=== PATIENT | male | born 1975 | race Caucasian/White ===

== ENCOUNTER 2018-02-28 16:01 | Emergency (ER) | payer SELFPAY ==
[2018-02-28 17:08] LABS: Absolute Lymphocytes (CBC) 1.9 K/uL (0.7-4.9); Absolute Monocytes 0.4 K/uL (0.1-1.3); Absolute Neutrophil 7.4 K/uL (1.8-8.0); Basophils % 0.4 % (0-1.3); MCH 32.7 pg (27.0-35.0); MCV 94.7 fL (80-100); Monocytes % 4.5 % (3.3-12.3); RBC Red Blood Cell Count 4.86 M/uL (4.33-5.43)
[2018-02-28 17:09] LABS: Barbiturates NEGATIVE (NEGATIVE); Benzodiazepines NEGATIVE (NEGATIVE); Cocaine NEGATIVE (NEGATIVE); METHAMPHETAM NEGATIVE (NEGATIVE); Opiates NEGATIVE (NEGATIVE); Phencyclidine NEGATIVE (NEGATIVE); THC Cannibis NEGATIVE (NEGATIVE)
[2018-02-28 17:13] LABS: Protime INR 0.88
[2018-02-28 17:16] LABS: Bicarbonate 25 mEq/L (21-31); Glucose Level 120 mg/dL (65-120); Potassium 3.4 mEq/L (3.6-5.0); Sodium Level 140 mEq/L (135-145)
[2018-02-28 17:23] LABS: ALT/SGPT 92 IU/L (10-60); AST/SGOT 128 IU/L (10-42); Albumin 4.8 g/dL (3.2-5.5); Alcohol Serum/Plasma 334 mg/dl; Alkaline Phosphatase 76 IU/L (42-121); BUN Blood Urea Nitrogen < 5 mg/dL (6-20); Bilirubin Direct 0.1 mg/dL (0-0.2); Bilirubin Total 0.4 mg/dL (0.3-1.2); Protein, Total 8.2 g/dL (6.0-8.3)
--- NOTE | 2018-02-28 18:15 | RAD REPORT ---
EXAM DESCRIPTION: Tracey Love (2 Views)02/28/2018 6:02 pm CLINICAL HISTORY: Chest pain COMPARISON: April 2017 FINDINGS: The lungs appear clear of acute infiltrate. The heart is normal size IMPRESSION: No acute abnormalities displayed
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
[2018-02-28 19:33] LABS: Urine Blood TRACE (NEG); Urine Glucose NEGATIVE (NEG); Urine Protein NEGATIVE (NEG); Urine pH 6.5 (5.0-7.0)
--- NOTE | 2018-03-01 06:30 | EKG ---
Test Date: 2018-02-28 Test Time: 16:18:27 Ceo And President: LAST MEASUREMENT RESULTS: Intervals: Rate: 107 AK: 120 QRSD: 84 QT: 334 QTc: 445 [place]: P: 69 AK: 120 QRS: 66 T: 57 INTERPRETIVE STATEMENTS: Sinus tachycardia Otherwise normal ECG Compared to ECG 04/29/2017 03:45:41 Sinus rhythm no longer present Sinus arrhythmia no longer present Early repolarization no longer present Electronically Signed On 03-01-18 06:28:58 CDT by Tiburcio Louis
== END 2018-02-28 18:36 | disposition home or self-care (01) ==
LOC: ER 16:01
DX: F10.129 Alcohol abuse with intoxication, unspecified (principal); I10 Essential (primary) hypertension; F17.210 Nicotine dependence, cigarettes, uncomplicated
CPT/HCPCS: 36415; 71046; 80048; 80076; 80307; 80320; 81003; 84484; 85025; 85610; 93005; 99285

== ENCOUNTER 2018-05-07 12:49 | Emergency (ER) | payer SELFPAY ==
[2018-05-07] MEDS ORDERED: DIPHENHYDRAMINE 50 MG/ML VIAL ONE (14:47)
[2018-05-07] MEDS ORDERED: METOCLOPRAMIDE 10 MG/2mL INJ ONE (14:47)
[2018-05-07] MEDS ORDERED: NA CHLORIDE 0.9% 1,000 ML ONE (14:48)
[2018-05-07] MEDS ORDERED: KETOROLAC 30 MG/ML INJ ONE (14:48)
--- NOTE | 2018-05-07 15:02 | RAD REPORT ---
EXAM DESCRIPTION: CT - Head Brain Wo Cont - 05/07/2018 2:55 pm CLINICAL HISTORY: Left-sided headache COMPARISON: None. TECHNIQUE: Axial 5 mm thick images of the head were obtained without IV contrast. All CT scans are performed using dose optimization technique as appropriate and may include automated exposure control or mA/KV adjustment according to patient size. FINDINGS: No intracranial hemorrhage, mass, edema or shift of mid-line structures. No acute infarcti on changes seen. No abnormal extra-axial fluid collections. Ventricles are normal. Mastoid air cells and visualized portions of the paranasal sinuses are clear. No acute bony findings. IMPRESSION: Negative non-contrast CT head examination.
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
== END 2018-05-07 16:30 | disposition home or self-care (01) ==
LOC: ER 12:49
DX: R51 Headache (principal); I10 Essential (primary) hypertension; F17.210 Nicotine dependence, cigarettes, uncomplicated
CPT/HCPCS: 70450; 96361; 96374; 96375; 99284; J2765; J7030

== ENCOUNTER 2019-02-15 20:05 | Emergency (ER) | payer SELFPAY ==
[2019-02-15] MEDS ORDERED: HYDROCODONE/APAP 10/325 TAB ONE (21:12)
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
--- NOTE | 2019-02-16 08:15 | RAD REPORT ---
EXAM DESCRIPTION: RAD - Lumbar Spine 3 Views - 02/15/2019 9:10 pm CLINICAL HISTORY: PAIN Radiculopathy COMPARISON: No comparisons FINDINGS: Vertebral body heights appear maintained. No compression fracture noted. Disc spaces are m aintained. Mild degenerative levoscoliosis seen. Facet arthrosis is noted, mild, L4-5 and L5-S1. IMPRESSION: Mild spondylosis without acute process identified.
== END 2019-02-15 21:51 | disposition home or self-care (01) ==
LOC: ER 20:05
DX: M54.5 Low back pain (principal); F17.210 Nicotine dependence, cigarettes, uncomplicated
CPT/HCPCS: 72100; 99284

== ENCOUNTER 2020-11-02 19:35 | Emergency (ER) | payer OTHER, SELFPAY ==
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
[2020-11-02] MEDS ORDERED: KETOROLAC 30 MG/ML INJ ONE (20:10)
[2020-11-02 20:36] VITALS: BP 143/109; TEMP 98.4; O2SAT 98
== END 2020-11-02 20:17 | disposition home or self-care (01) ==
LOC: ER 19:35
DX: G89.21 Chronic pain due to trauma (principal); V89.2XXA Person injured in unspecified motor-vehicle accident, traffic, initial encounter; I10 Essential (primary) hypertension; F17.210 Nicotine dependence, cigarettes, uncomplicated
CPT/HCPCS: 96372; 99283

== ENCOUNTER 2020-11-05 16:25 | Emergency (ER) | payer SELFPAY ==
[2020-11-05 19:44] LABS: Urine Blood TRACE (NEG); Urine Glucose NEGATIVE (NEG); Urine Protein NEGATIVE (NEG)
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
[2020-11-05 20:50] LABS: Barbiturates NEGATIVE (NEGATIVE); Benzodiazepines NEGATIVE (NEGATIVE); Cocaine NEGATIVE (NEGATIVE); METHAMPHETAM NEGATIVE (NEGATIVE); Methadone NEGATIVE (NEGATIVE); Opiates NEGATIVE (NEGATIVE); Phencyclidine NEGATIVE (NEGATIVE); THC Cannibis NEGATIVE (NEGATIVE)
[2020-11-05 22:32] LABS: Absolute Lymphocytes (CBC) 1.4 K/uL (0.7-4.9); Basophils % 0.4 % (0-1.3); Hematocrit 47.5 % (39.6-49.0); Lymphocytes % 18.2 % (15.3-44.8); MPV 7.5 fL (7.6-11.3); RBC Red Blood Cell Count 5.17 M/uL (4.33-5.43)
[2020-11-05 22:36] LABS: Protime INR 0.82
[2020-11-05 22:49] LABS: ALT/SGPT 53 U/L (12-78); AST/SGOT 84 U/L (15-37); Albumin 4.4 g/dL (3.4-5.0); Alkaline Phosphatase 94 U/L (45-117); BUN Blood Urea Nitrogen 4 mg/dL (7-18); Bicarbonate 23 mmol/L (21-32); Bilirubin Direct 0.2 mg/dL (0-0.2); Bilirubin Total 0.5 mg/dL (0.2-1.0); Glucose Level 82 mg/dL (74-106); Potassium 3.6 mmol/L (3.5-5.1); Protein, Total 8.5 g/dL (6.4-8.2); Sodium Level 138 mmol/L (136-145)
[2020-11-05] MEDS ORDERED: TETRACAINE HCL 0.5% 4ML OPTH ONE (23:01)
[2020-11-05] MEDS ORDERED: FLUORESCEIN SODIUM 1 MG/WRAP ONE (23:01)
--- NOTE | 2020-11-06 10:00 | EKG ---
Test Date: 2020-11-05 Test Time: 18:47:19 Twisting Press Operator: AMPARO MEASUREMENT RESULTS: Intervals: Rate: 109 MA: 120 QRSD: 82 QT: 340 QTc: 457 [place]: P: 77 MA: 120 QRS: 72 T: 65 INTERPRETIVE STATEMENTS: Sinus tachycardia Otherwise normal ECG Compared to ECG 02/28/2018 16:18:27 No significant changes Electronically Signed On 11-06-20 09:59:27 DIAMOND DIE POLISHER by Hayden Ramos
[2020-11-06 11:04] VITALS: BP 131/94; TEMP 97.8; O2SAT 95
== END 2020-11-06 10:56 | disposition home or self-care (01) ==
LOC: ER 16:25
DX: F10.129 Alcohol abuse with intoxication, unspecified (principal); F31.9 Bipolar disorder, unspecified; F17.210 Nicotine dependence, cigarettes, uncomplicated; I10 Essential (primary) hypertension; Y90.6 Blood alcohol level of 120-199 mg/100 ml
CPT/HCPCS: 36415; 80048; 80076; 80307; 80320; 80329; 81003; 85025; 85610; 85730; 93005; 99284

== ENCOUNTER → 2020-11-05 | Emergency (ER) | payer SELFPAY | LOC: ER 20:43 | DX: Z02.9 Encounter for administrative examinations, unspecified (principal) ==

== ENCOUNTER 2021-01-09 13:17 | Emergency (ER) | payer OTHER, SELFPAY ==
--- OUTSIDE RECORDS SUMMARY | 2021-01-09 13:35 | XMS REPORT | Continuity of Care Document ---
:1975 Author Organization [facility] Address [address] [place] [address] Dr. Winn [address] [place] [id number] Care Team Providers Name Role Phone Unavailable Unavailable Unavailable Problems This patient has no known problems. Allergies, Adverse Reactions, Alerts This patient has no known allergies or adverse reactions. Medications This patient has no known medications. Procedures This patient has no known procedures. Encounters Start End Encounter Admission Attending Care Care Encounter Source Date/Time Date/Time Type Type Clinicians Facility Department ID 2019-09-05 2019-09-05 Outpatient [facility] [id number] [facility] 18:00:00 18:00:00 2019-09-05 2019-09-05 Inpatient [facility] [id number] [facility] 21:35:00 15:51:00 Results This patient has no known results.
[2021-01-09 13:36] LABS: Urine Blood Negative (Negative); Urine Glucose Negative (Negative); Urine Protein Negative (Negative); Urine pH 6.5 (5.0-7.0)
[2021-01-09 13:43] LABS: Absolute Lymphocytes (CBC) 2.5 K/uL (0.7-4.9); Basophils % 1.4 % (0-1.3); Lymphocytes % 31.8 % (15.3-44.8); MPV 7.5 fL (7.6-11.3); RBC Red Blood Cell Count 4.72 M/uL (4.33-5.43)
[2021-01-09 13:46] LABS: Protime INR 0.82
--- NOTE | 2021-01-09 13:56 | RAD REPORT ---
EXAM DESCRIPTION: CT - Head Brain Wo Cont - 01/09/2021 1:35 pm CLINICAL HISTORY: MENTAL STATUS CHANGE COMPARISON: Head Brain Wo Cont dated 05/07/2018 TECHNIQUE: Axial 5 mm thick images of the head were obtained without IV contrast. All CT scans are performed using dose optimization technique as appropriate and may include automated exposure control or mA/KV adjustment according to patient size. FINDINGS: No intracranial hemorrhage, mass, edema or shift of mid-line structures. No acute infarcti on changes seen. No abnormal extra-axial fluid collections. Ventricles are normal. Mastoid air cells are clear. Left deviation of the nasal septum present. Patchy mucosal thickening se en in the left frontal and bilateral ethmoid air cells. No acute bony findings. IMPRESSION: Negative non-contrast CT head examination for acute finding. Above detailed findings are not significantly different from 2018.
[2021-01-09 14:08] LABS: ALT/SGPT 221 U/L (12-78); AST/SGOT 105 U/L (15-37); Albumin 4.4 g/dL (3.4-5.0); Alkaline Phosphatase 108 U/L (45-117); BUN Blood Urea Nitrogen 3 mg/dL (7-18); Bicarbonate 25 mmol/L (21-32); Bilirubin Direct 0.1 mg/dL (0-0.2); Bilirubin Total 0.3 mg/dL (0.2-1.0); Glucose Level 90 mg/dL (74-106); Protein, Total 8.1 g/dL (6.4-8.2); Sodium Level 136 mmol/L (136-145)
[2021-01-09 14:08] LABS: Barbiturates NEGATIVE (NEGATIVE); Benzodiazepines NEGATIVE (NEGATIVE); Cocaine NEGATIVE (NEGATIVE); METHAMPHETAM NEGATIVE (NEGATIVE); Opiates NEGATIVE (NEGATIVE); Phencyclidine NEGATIVE (NEGATIVE)
[2021-01-09] MEDS ORDERED: NA CHLORIDE 0.9% 1,000 ML ONE (14:30)
[2021-01-09 14:45] LABS: Methadone NEGATIVE (NEGATIVE); THC Cannibis NEGATIVE (NEGATIVE)
[2021-01-09] MEDS ORDERED: FOLIC ACID 1 MG, MULTIVITAMINS INJ 10 ML, THIAMINE HCL 100 MG in NA CHLORIDE 0.9% 1,000 ML IV ONE (15:00)
--- NOTE | 2021-01-09 16:07 | EKG ---
Test Date: 2021-01-09 Test Time: 13:25:25 Leave Coordinator: Zara Yeager MEASUREMENT RESULTS: Intervals: Rate: 102 MO: 118 QRSD: 88 QT: 350 QTc: 456 [place]: P: 77 MO: 118 QRS: 63 T: 53 INTERPRETIVE STATEMENTS: Sinus tachycardia Otherwise normal ECG Compared to ECG 11/05/2020 20:23:35 Atrial fibrillation no longer present Right-axis deviation no longer present Myocardial infarct finding no longer present Electronically Signed On 01-09-21 16:06:41 CDT by Hayden Ramos
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
[2021-01-09 19:45] VITALS: TEMP 98.6
[2021-01-09 19:54] VITALS: BP 125/80; O2SAT 98
== END 2021-01-09 19:36 | disposition home or self-care (01) ==
LOC: ER 13:17
DX: F10.129 Alcohol abuse with intoxication, unspecified (principal); I10 Essential (primary) hypertension
CPT/HCPCS: 36415; 51702; 70450; 80048; 80076; 80307; 80320; 80329; 81003; 85025; 85610; 85730; 93005; 96361; 96365; 99285; J3411; J7030